=== PATIENT | male | born 1965 | race Two or more races ===

== ENCOUNTER 2019-10-10 11:46 | Emergency (ER) | payer SELFPAY ==
[~2019-10-10] VITALS: Ht 172.7 cm; Wt 77.1 kg
[2019-10-10 15:20] VITALS: BP 176/109
== END 2019-10-10 15:51 | disposition home or self-care (01) ==
LOC: ER 11:50
DX: J02.9 Acute pharyngitis, unspecified (principal); I10 Essential (primary) hypertension